=== PATIENT | male | born 1995 | race Caucasian/White ===

== ENCOUNTER 2019-01-18 13:03 | Observation (INO) | payer OTHER ==
[2019-01-18] MEDS ORDERED: Ondansetron PF 4 MG/2 ML Vial ONE ×2 (14:37→18:09)
[2019-01-18] MEDS ORDERED: Morphine 4 MG/ML VIAL ONE ×2 (14:37→18:09)
[2019-01-18 14:46] LABS: #Basophils 0.1 thou/uL (0.0-0.2); #Eosinphils 0.1 thou/uL (0.0-0.7); #Monocytes 0.8 thou/uL (0.11-0.59); #Neutrophils 5.2 thou/uL (1.40-6.50); %Basophils 0.7 % (0.0-1.0); %Eosinophils 1.1 % (0.0-10.0); %Lymphocytes 14.5 % (21.0-51.0); %Monocytes 10.9 % (0.0-10.0); %Neutrophils 72.7 % (42.0-75.0); Hemoglobin 11.7 g/dL (14.0-18.0); Mean Corpuscular HGB CONC 34.1 g/dL (32.0-36.0); Mean Corpuscular Hemoglobin 30.6 pg (27.0-31.0); Mean Corpuscular Volume 89.9 fL (78.0-98.0); Mean Platelet Volume 6.8 fL (7.4-10.4); Platelet Count 387 thou/uL (130-400); RBC Distribution Width 12.3 % (11.5-14.5); Red Blood Cell (RBC) Count 3.81 mill/uL (4.70-6.10); White Blood Cell (WBC) Count 7.1 thou/uL (4.8-10.8)
[2019-01-18 15:05] LABS: ALT (SGPT) 16 U/L (8-55); AST (SGOT) 39 U/L (5-34); Albumin 4.4 g/dL (3.5-5.0); Alkaline Phosphatase 63 U/L (40-150); Anion Gap 14 mmol/L (10-20); BUN (Urea Nitrogen) 18 mg/dL (8.9-20.6); Bilirubin, Total 4.4 mg/dL (0.2-1.2); Calc. Creatinine Clearance 0 mL/min (70-130); Calcium 10.1 mg/dL (7.8-10.44); Carbon Dioxide 28 mmol/L (22-29); Chloride 99 mmol/L (98-107); Estimated GFR-MDRD Greater than 90; Globulin 3.6 g/dL (2.4-3.5); Glucose 104 mg/dL (70-105); Lipase 31 U/L (8-78); Sodium 137 mmol/L (136-145)
--- NOTE | 2019-01-18 19:01 | HP ---
CHIEF COMPLAINT: Abdominal pain, nausea, jaundice. HISTORY OF PRESENT ILLNESS: This is a 23-year-old male who is a week and two, he is 9 days status post laparoscopic appendectomy done at [facility] in [facility] in [facility]. He had presented there from the mother's report nonperforated appendicitis. He was sent home on Augmentin to be taken for 2 weeks. He has noted continued abdominal distention associated with nausea and bloating, has not been able to eat much with no appetite. He has had some diarrhea. His CT scan done in [place] shows fluid in bilateral pericolic gutters as well as the pelvis. There was no free air. There was no abscess. His bilirubin was found to be 4. The family is not interested in going back to [place]. The patient has a history of chronic abdominal pain that is intermittent, lower crampy associated with chronic diarrhea. He has never had full workup by laryngologist. He was sent to have labs done by his primary care doctor before the appendectomy started. He had flu-like symptoms for a few weeks before the appendectomy. PAST MEDICAL HISTORY: He denies. SURGICAL HISTORY: Above. MEDICATIONS: Taken daily none. ALLERGIES: NO KNOWN DRUG ALLERGIES. SOCIAL HISTORY: Drinks socially. No smoking or other drugs. PHYSICAL EXAMINATION: VITAL SIGNS: His pulse is in 90s, blood pressure is 138/75. He is afebrile here, O2 sats are 100% on room air. HEENT: Icteric sclera. His oropharynx is clear. NECK: No lymphadenopathy. CHEST: Clear. HEART: Regular rate and rhythm. ABDOMEN: Soft, diffuse mildly tender, more tender at incision sites. No evidence of wound infection. LABORATORY DATA: White count is 7, hemoglobin is 11.7, platelet count is 387. Sodium 137, potassium 4.0, creatinine is 0.86, bilirubin is 4.4, AST is 39, lipase normal, albumin normal. CT scan shows fluid in bilateral pericolic gutters as well as the pelvis. No abscess. No evidence of inflammatory change to the bowel or colon. ASSESSMENT: 1. Postop laparoscopic appendectomy with likely blood in the abdomen. Suspect this is postsurgical from port site or staple line bleed. 2. Jaundice. I suspect this is from breakdown of blood clot in his abdomen. 3. Chronic bloating associated with diarrhea, uncertain etiology. He has not had inflammatory bowel disease workup yet. PLAN: Admit to the hospital for IV fluids. We will allow clear liquids. He was placed on Zosyn. This fluid in the abdomen explained by his slightly low hemoglobin is probably blood. However, there is no obvious abscess. Infectious count is normal. He is not tachycardic. He is not febrile here, so I do not suspect this is infected fluid. However, if he clinically does not improve overnight, I suspect he will need a laparoscopy, potential abdominal washout. He also needs outpatient complete workup to rule out inflammatory bowel disease. If he has diarrhea here in the hospital, we will check for C. diff. Job ID: [id number]
[2019-01-18] MEDS ORDERED: Promethazine HCl 25 MG/ML VIAL IM PRN (19:42)
[2019-01-18] MEDS ORDERED: Acetaminophen 1,000 MG in Premix Bag 1 BAG IVPB PRN (19:42)
[2019-01-18] MEDS ORDERED: Dextrose 50% Abboject 50 ML SYRINGE SLOW IVP PRN (19:42)
[2019-01-18] MEDS ORDERED: hydrALAZINE 20 MG/ML VIAL SLOW IVP PRN (19:42)
[2019-01-18] MEDS ORDERED: Morphine 2 MG/ML SYRINGE SLOW IVP PRN (19:42)
[2019-01-18] MEDS ORDERED: Dextrose 5% in Water 1,000 ML IV PRN (19:42)
[2019-01-18] MEDS ORDERED: Ondansetron PF 4 MG/2 ML Vial IVP PRN (19:42)
[2019-01-18] MEDS: D5 1/2 NS w/20 mEq KCL 1,000 ML IV SCH (20:13)
[2019-01-18 21:06] VITALS: BMI 21.2
[2019-01-18] MEDS: Famotidine/PF 20 mg/2ml Vial SLOW IVP SCH (21:50)
[2019-01-18] MEDS: Famotidine 20 MG TAB PO SCH (21:50)
[2019-01-18] MEDS: Morphine 4 MG/ML VIAL SLOW IVP PRN (21:58)
[2019-01-19] MEDS: Piperacillin/Tazobactam 3.375 GM in Sodium Chloride 0.9% 100 ML IVPB SCH ×4 (01:26→18:06)
[2019-01-19] MEDS: Morphine 4 MG/ML VIAL SLOW IVP PRN ×6 (02:04→20:16)
[2019-01-19] MEDS: D5 1/2 NS w/20 mEq KCL 1,000 ML IV SCH ×3 (02:56→20:27)
[2019-01-19 05:59] LABS: #Eosinphils 0.1 thou/uL (0.0-0.7); #Lymphocytes 1.3 thou/uL (1.20-3.40); #Monocytes 0.9 thou/uL (0.11-0.59); #Neutrophils 4.3 thou/uL (1.40-6.50); %Basophils 0.6 % (0.0-1.0); %Monocytes 13.6 % (0.0-10.0); %Neutrophils 64.7 % (42.0-75.0); Hemoglobin 10.4 g/dL (14.0-18.0); Mean Corpuscular HGB CONC 32.8 g/dL (32.0-36.0); Mean Corpuscular Hemoglobin 30.5 pg (27.0-31.0); Mean Platelet Volume 6.7 fL (7.4-10.4); Platelet Count 323 thou/uL (130-400); RBC Distribution Width 12.5 % (11.5-14.5); Red Blood Cell (RBC) Count 3.42 mill/uL (4.70-6.10); White Blood Cell (WBC) Count 6.6 thou/uL (4.8-10.8)
[2019-01-19 06:12] LABS: Anion Gap 11 mmol/L (10-20); BUN (Urea Nitrogen) 12 mg/dL (8.9-20.6); Calc. Creatinine Clearance 130 mL/min (70-130); Calcium 9.5 mg/dL (7.8-10.44); Carbon Dioxide 28 mmol/L (22-29); Chloride 102 mmol/L (98-107); Estimated GFR-MDRD Greater than 90; Glucose 93 mg/dL (70-105); Potassium 4.1 mmol/L (3.5-5.1); Sodium 137 mmol/L (136-145)
[2019-01-19 08:44] LABS: ALT (SGPT) 14 U/L (8-55); AST (SGOT) 35 U/L (5-34); Albumin 3.8 g/dL (3.5-5.0); Alkaline Phosphatase 54 U/L (40-150); Bilirubin, Direct 0.3 mg/dL (0.1-0.3); Bilirubin, Total 4.1 mg/dL (0.2-1.2); Protein, Total 6.9 g/dL (6.0-8.3)
--- NOTE | 2019-01-19 09:05 | ULT ---
RIGHT UPPER QUADRANT ULTRASOUND: Date: 01/19/19 HISTORY: Elevated bilirubin, status post laparoscopic appendectomy. TECHNIQUE: Multiple longitudinal and transverse images of the right upper quadrant of the abdomen obtained using a multihertz curvilinear transducer. Real-time and color flow images, as well as spectral waveform D oppler analysis used to evaluate the right upper quadrant. FINDINGS: Liver is unremarkable. No evidence of hepatic parenchymal masses or lesions seen. Normal hepatopetal flow seen. Gallbladder is unremarkable with no evidence of gallbladder wall thickening or gallstones. Common vanesa e duct is of normal size measuring 3.5 mm. A small amount of free pelvic fluid is seen. Visualized portions of the pancreas are unremarkable. Right kidney is unremarkable, measuring 11.1 cm from pole to pole, with no evidence of masses or lesi ons or evidence of hydronephrosis. IMPRESSION: 1. Normal gallbladder with no evidence of intrahepatic biliary dilatation. 2. Small amount of free pelvic fluid. POS: H
[2019-01-19] MEDS: Famotidine/PF 20 mg/2ml Vial SLOW IVP SCH ×2 (09:10→21:36)
[2019-01-19] MEDS: Famotidine 20 MG TAB PO SCH ×2 (09:11→21:36)
--- NOTE | 2019-01-19 12:25 | PRG ---
DATE OF SERVICE: 01/19/2019 SUBJECTIVE: Mr. Salazar feels better today. He has no more nausea. He still has some lower abdominal pain. He had ultrasound and repeat LFTs this morning. His pulse is 82, respirations 16, O2 saturation 98% on room air, blood pressure 106/69. He has had multiple voids. His abdomen is soft, still mildly distended with some lower abdominal tenderness, but no guarding or rebound. His white cell count is 6, hemoglobin 10, platelet count is 323. Sodium 137, potassium 4.1, creatinine 0.89. Bilirubin total is 4.1, only 0.3 of that is direct. AST elevated at 35. Ultrasound shows no gallstones. ASSESSMENT: 1. Readmission for postop abdominal blood one week after laparoscopic appendectomy. 2. Cholestasis secondary to blood breakdown I suspect. 3. Ultrasound shows no gallstones or biliary duct dilation and most of the bilirubin is indirect. PLAN: We will advance to full liquid diet. Continue observation. I suspect he will be feeling better within the next few days. We discussed laparoscopy, abdominal washout. I do not think he has to have that given the fact that this is almost certainly blood. I do not suspect it is infected given his lack of tachycardia, fever, or increased infectious count, or left shift. Bilirubin is not going to be normal upon discharge. If he is feeling better over the weekend, he will be discharged home. He also has a history of some chronic symptoms in his right lower quadrant with cramping and diarrhea. I will arrange for outpatient GI referral when he comes back and sees me in the office. Dr. Whitlock covering for me this weekend. Job ID: [id number]
[2019-01-19 16:13] LABS: Bilirubin Negative (Negative); Blood, Urine Moderate (Negative); Clarity CLEAR (Clear); Glucose, Urine (Dipstick) Negative (Negative); Leukocyte Negative (Negative); Nitrite Negative (Negative); Protein, Urine (Dipstick) Negative (Neg-Trace); Specific Gravity, Urine 1.004 (1.002-1.036); Urobilinogen 0.2 mg/dL (0.2-1.0); pH, Urine 7.5 (5.0-9.0)
[2019-01-19 16:14] LABS: Bacteria/HPF None Seen HPF (None Seen); Hyaline Casts/LPF 0-3 HYALINE CAST LPF (0-3 Hyaline); Squamous Epithelial None Seen HPF (0-3); WBC/HPF 0-3 HPF (0-3)
[2019-01-19 16:32] LABS: RBC/HPF 0-3 HPF (0-3)
[2019-01-19] MEDS: Acetaminophen 500 MG TAB PO PRN (23:04)
[2019-01-20] MEDS: D5 1/2 NS w/20 mEq KCL 1,000 ML IV SCH ×2 (00:14→13:12)
[2019-01-20] MEDS: Morphine 4 MG/ML VIAL SLOW IVP PRN ×5 (02:39→16:27)
[2019-01-20 07:34] LABS: #Eosinphils 0.1 thou/uL (0.0-0.7); #Lymphocytes 1.3 thou/uL (1.20-3.40); #Monocytes 0.8 thou/uL (0.11-0.59); #Neutrophils 3.6 thou/uL (1.40-6.50); %Basophils 0.6 % (0.0-1.0); %Eosinophils 2.3 % (0.0-10.0); %Lymphocytes 22.4 % (21.0-51.0); %Neutrophils 60.7 % (42.0-75.0); Hemoglobin 11.7 g/dL (14.0-18.0); Mean Corpuscular HGB CONC 31.9 g/dL (32.0-36.0); Mean Corpuscular Hemoglobin 29.8 pg (27.0-31.0); Mean Corpuscular Volume 93.4 fL (78.0-98.0); Mean Platelet Volume 6.6 fL (7.4-10.4); Platelet Count 312 thou/uL (130-400); RBC Distribution Width 12.2 % (11.5-14.5); Red Blood Cell (RBC) Count 3.93 mill/uL (4.70-6.10)
[2019-01-20 07:49] LABS: ALT (SGPT) 11 U/L (8-55); AST (SGOT) 31 U/L (5-34); Albumin 3.9 g/dL (3.5-5.0); Alkaline Phosphatase 53 U/L (40-150); Anion Gap 13 mmol/L (10-20); BUN (Urea Nitrogen) 8 mg/dL (8.9-20.6); Bilirubin, Total 3.8 mg/dL (0.2-1.2); Calc. Creatinine Clearance 150 mL/min (70-130); Calcium 9.5 mg/dL (7.8-10.44); Carbon Dioxide 29 mmol/L (22-29); Chloride 102 mmol/L (98-107); Estimated GFR-MDRD Greater than 90; Globulin 3.3 g/dL (2.4-3.5); Glucose 97 mg/dL (70-105); Potassium 3.8 mmol/L (3.5-5.1); Protein, Total 7.2 g/dL (6.0-8.3); Sodium 140 mmol/L (136-145)
[2019-01-20] MEDS: Famotidine/PF 20 mg/2ml Vial SLOW IVP SCH (09:21)
[2019-01-20] MEDS: Famotidine 20 MG TAB PO SCH ×2 (09:22→22:52)
[2019-01-20] MEDS: Acetaminophen 500 MG TAB PO PRN ×2 (13:01→22:24)
[2019-01-20] MEDS: Ketorolac Tromethamine 30 MG/ML VIAL IVP PRN ×2 (15:18→22:23)
[2019-01-20] MEDS ORDERED: traMADol HCl 50 MG TAB PO PRN (16:56)
[2019-01-20] MEDS ORDERED: Ibuprofen 600 MG TAB PO PRN (16:56)
--- NOTE | 2019-01-20 17:18 | PRG ---
DATE OF SERVICE: 01/20/2019 SUBJECTIVE: Bhupendra Salazar, 23-year-old male patient seen by Dr. Jerome. The patient's temperature is 98.9 degrees, pulse rate 69, blood pressure 122/72. He has been afebrile. Family reports a low-grade fever in the past, but he has not had a low-grade fever since this hospitalization. Hemoglobin this morning is 11.7, white count 6. Basic metabolic profile is normal. The patient denies having nausea or vomiting. He has passed flatus, but no bowel movement. OBJECTIVE: LUNGS: Clear to auscultation. CARDIAC: Regular rate and rhythm. No murmur or gallop. ABDOMEN: Soft, flat, nontender, nondistended. Positive bowel sounds. EXTREMITIES: Unremarkable. ASSESSMENT/PLAN: Advance diet. Saline lock. Observe hemoglobin. Anticipate discharge in next 24 to 48 hours. The patient's bilirubin has been elevated 3.8 today. Ultrasound of his gallbladder is normal. His bilirubin elevation is probably due to cholestasis. Job ID: [id number]
[2019-01-20] MEDS: traMADol HCl 50 MG TAB PO PRN (19:06)
[2019-01-20] MEDS: Polyethylene Glycol 3350 17 GM Packet PO SCH (21:15)
[2019-01-21] MEDS: traMADol HCl 50 MG TAB PO PRN ×2 (00:36→07:05)
[2019-01-21] MEDS: Acetaminophen 500 MG TAB PO PRN (00:40)
[2019-01-21 05:02] LABS: #Eosinphils 0.2 thou/uL (0.0-0.7); #Lymphocytes 1.5 thou/uL (1.20-3.40); #Monocytes 0.7 thou/uL (0.11-0.59); #Neutrophils 3.9 thou/uL (1.40-6.50); %Basophils 0.8 % (0.0-1.0); %Eosinophils 2.7 % (0.0-10.0); %Lymphocytes 23.8 % (21.0-51.0); %Monocytes 10.9 % (0.0-10.0); %Neutrophils 61.8 % (42.0-75.0); Hemoglobin 11.4 g/dL (14.0-18.0); Mean Corpuscular HGB CONC 32.1 g/dL (32.0-36.0); Mean Corpuscular Hemoglobin 30.9 pg (27.0-31.0); Mean Corpuscular Volume 96.3 fL (78.0-98.0); Mean Platelet Volume 7.3 fL (7.4-10.4); Platelet Count 290 thou/uL (130-400); RBC Distribution Width 12.2 % (11.5-14.5); Red Blood Cell (RBC) Count 3.68 mill/uL (4.70-6.10); White Blood Cell (WBC) Count 6.2 thou/uL (4.8-10.8)
[2019-01-21 05:15] LABS: ALT (SGPT) 11 U/L (8-55); AST (SGOT) 31 U/L (5-34); Albumin 4.1 g/dL (3.5-5.0); Alkaline Phosphatase 57 U/L (40-150); Bilirubin, Direct 0.4 mg/dL (0.1-0.3); Bilirubin, Total 3.3 mg/dL (0.2-1.2); Protein, Total 7.4 g/dL (6.0-8.3)
[2019-01-21] MEDS: Polyethylene Glycol 3350 17 GM Packet PO SCH (08:56)
[2019-01-21] MEDS: Famotidine 20 MG TAB PO SCH (08:58)
--- NOTE | 2019-01-21 11:55 | PRG ---
DATE OF SERVICE: 01/21/2019 SUBJECTIVE: Mr. Salazar is doing well today. He is tolerating a regular diet. He has had a normal bowel movement. He is not having diarrhea. C. diff antigen positive. Toxin negative. We will not treat this. OBJECTIVE: VITAL SIGNS: Temperature 98.1 degrees, heart rate 78, and blood pressure 120/77. LUNGS: Clear to auscultation. CARDIAC: Regular rate and rhythm. No murmur or gallop. ABDOMEN: Soft, nontender, and nondistended. LABORATORY DATA: Hemoglobin, stable at 11.4. Bilirubin down from 4.4 to 3.3. ASSESSMENT AND PLAN: Doing well. Postoperative bleed after laparoscopic appendectomy. Hemoglobin, stable. He is tolerating his diet. He is discharged home at this time with Tylenol, ibuprofen, and Ultram p.r.n. for pain. MiraLAX as needed, hold for diarrhea. Follow up with Dr. Jerome in 2 to 3 weeks. Job ID: [id number]
[2019-01-21 11:57] VITALS: BP 129/77; TEMP 98.7
--- NOTE | 2019-01-21 12:37 | DIS ---
DATE OF ADMISSION: 01/18/2019 DATE OF DISCHARGE: 01/21/2019 DISCHARGE DIAGNOSIS: Postoperative bleed from laparoscopic appendectomy performed at another facility. Ultrasound this hospitalization reveals normal gallbladder, some small amount of free pelvic fluid. FINDINGS THIS HOSPITALIZATION: Significant was that his hemoglobin was 11.7. Discharged with hemoglobin of 11.4. His bilirubin on admission was 4.4, discharged with 3.3 bilirubin. The patient had a small ileus. HISTORY: A 23-year-old male status post laparoscopic video appendectomy with uncomplicated appendicitis at another facility, presented to this facility because of abdominal pain and nausea. Admitted 01/18/[address] Jerome from the emergency room. The patient's appendectomy was performed at [facility]. He was on Augmentin for 2 weeks. He did present with abdominal distention, nausea, and bloating. CAT scan done in [place] showed fluid in bilateral pericolic gutters. The patient has a history of chronic abdominal pain, intermittent lower abdominal cramping and chronic diarrhea. He has never had a full workup by Gastroenterology. The patient was admitted. It was felt his free fluid was from his bleeding post laparoscopic appendectomy. His hemoglobin remained stable. He did not require transfusion. Stool was sent for C. diff, although he was not having diarrhea with C. diff antigen positive, toxin negative. He was not treated with antibiotics in this hospitalization. He was discharged home with Tylenol, Advil, and Ultram p.r.n. pain. Follow up with Dr. Jerome in 2 weeks. Diet and activity as tolerated. Job ID: [id number]
== END 2019-01-21 12:50 | disposition home or self-care (01) ==
LOC: ERS 13:03 → SURG B 17:13
PROVIDERS: ADMIT Surgery; ATTEND Surgery
DX: K91.840 Postprocedural hemorrhage of a digestive system organ or structure following a digestive system procedure (principal); K52.9 Noninfective gastroenteritis and colitis, unspecified; R17 Unspecified jaundice; Z88.1 Allergy status to other antibiotic agents
CPT/HCPCS: 36415; 76705; 80048; 80053; 80076; 81001; 83605; 83690; 85025; 87086; 87324; 87449; 87493; 96361; 96365; 96374; 96375; 96376; G0378; J1885; J2270; J2405; J2543; J7050; S0028

== ENCOUNTER 2019-01-24 15:41 | Observation (INO) | payer OTHER ==
[~2019-01-24 15:41] MED LIST: ISOVUE-370 76%-LOCM 1 ML ONE; Iopamidol 370 76% 50 ML VIAL FS ONE
[2019-01-24] MEDS ORDERED: Ketorolac Tromethamine 30 MG/ML VIAL ONE (18:04)
[2019-01-24 18:06] LABS: #Eosinphils 0.1 thou/uL (0.0-0.7); #Lymphocytes 1.2 thou/uL (1.20-3.40); #Monocytes 0.7 thou/uL (0.11-0.59); #Neutrophils 7.9 thou/uL (1.40-6.50); %Basophils 0.5 % (0.0-1.0); %Eosinophils 0.6 % (0.0-10.0); %Lymphocytes 12.3 % (21.0-51.0); %Monocytes 6.7 % (0.0-10.0); %Neutrophils 79.9 % (42.0-75.0); Hemoglobin 12.9 g/dL (14.0-18.0); Mean Corpuscular HGB CONC 32.5 g/dL (32.0-36.0); Mean Corpuscular Hemoglobin 29.3 pg (27.0-31.0); Mean Corpuscular Volume 90.4 fL (78.0-98.0); Mean Platelet Volume 6.6 fL (7.4-10.4); Platelet Count 381 thou/uL (130-400); RBC Distribution Width 11.8 % (11.5-14.5); Red Blood Cell (RBC) Count 4.39 mill/uL (4.70-6.10); White Blood Cell (WBC) Count 9.9 thou/uL (4.8-10.8)
[2019-01-24 18:13] LABS: Bilirubin Negative (Negative); Blood, Urine Negative (Negative); Clarity CLEAR (Clear); Glucose, Urine (Dipstick) Negative (Negative); Leukocyte Negative (Negative); Nitrite Negative (Negative); Protein, Urine (Dipstick) Negative (Neg-Trace); Specific Gravity, Urine 1.006 (1.002-1.036); Urobilinogen 0.2 mg/dL (0.2-1.0); pH, Urine 6.5 (5.0-9.0)
[2019-01-24 18:25] LABS: ALT (SGPT) 117 U/L (8-55); AST (SGOT) 85 U/L (5-34); Albumin 4.1 g/dL (3.5-5.0); Alkaline Phosphatase 60 U/L (40-150); Anion Gap 16 mmol/L (10-20); BUN (Urea Nitrogen) 15 mg/dL (8.9-20.6); Bilirubin, Total 1.4 mg/dL (0.2-1.2); Calc. Creatinine Clearance 0 mL/min (70-130); Calcium 9.3 mg/dL (7.8-10.44); Carbon Dioxide 25 mmol/L (22-29); Chloride 99 mmol/L (98-107); Estimated GFR-MDRD Greater than 90; Globulin 3.7 g/dL (2.4-3.5); Glucose 102 mg/dL (70-105); Lipase 15 U/L (8-78); Potassium 3.9 mmol/L (3.5-5.1); Protein, Total 7.8 g/dL (6.0-8.3); Sodium 136 mmol/L (136-145)
[2019-01-24] MEDS ORDERED: Morphine 4 MG/ML VIAL ONE ×2 (19:21→21:39)
[2019-01-24] MEDS ORDERED: Ondansetron PF 4 MG/2 ML Vial ONE ×2 (19:21→19:25)
--- NOTE | 2019-01-24 19:51 | CT ---
FEXAM: CT abdomen and pelvis with IV contrast PROVIDED CLINICAL HISTORY: Abdominal pain COMPARISON: [facility] examination from [facility] 01/18/2019 FINDINGS: The visualized lung bases are free of significant opacity. The liver, spleen, pancreas, kidneys and adrenal glands demonstrate an unremarkable CT appearance. There is prominent interval decrease in the degree of previously described pelvic fluid. There is reji ewhat circumscribed pelvic fluid present measuring about 8.8 cm in maximum transverse dimension with minimal peripheral enhancement. There is no evidence for bowel obstruction. There is mural thickening involving the terminal ileum and possibly a portion of the sigmoid colon. There is no evidence for f ree air. There is a small amount of free fluid present within the right paracolic gutter. The osseous structures demonstrate no concerning lytic or blastic lesions. IMPRESSION: 1. Interval decrease in abdominal and pelvic fluid with nonspecific somewhat circumscribed pelvic flu id collection. Correlate with laboratory values regarding infection. This could also be on the basis of resolving blood products. 2. Mural thickening involving the distal ileum and possibly also portion of the sigmoid colon. This c ould be reactive versus related to inflammatory bowel disease.
[2019-01-24] MEDS ORDERED: Acetaminophen 325 MG TAB ONE (21:15)
[2019-01-24] MEDS ORDERED: Ondansetron PF 4 MG/2 ML Vial IVP PRN (21:53)
[2019-01-24] MEDS ORDERED: Sodium Chloride 0.9% 1,000 ML IV SCH (22:00)
[2019-01-24] MEDS ORDERED: Dextrose 50% Abboject 50 ML SYRINGE SLOW IVP PRN (22:01)
[2019-01-24] MEDS ORDERED: hydrALAZINE 20 MG/ML VIAL SLOW IVP PRN (22:01)
[2019-01-24] MEDS ORDERED: Promethazine HCl 25 MG/ML VIAL IM PRN (22:01)
[2019-01-24] MEDS ORDERED: Fentanyl 100 MCG/2 ML VIAL SLOW IVP PRN (22:01)
[2019-01-24] MEDS ORDERED: Acetaminophen 1,000 MG in Premix Bag 1 BAG IVPB PRN (22:01)
[2019-01-24] MEDS ORDERED: Dextrose 5% in Water 1,000 ML IV PRN (22:01)
[2019-01-24 22:08] VITALS: BMI 20.6
--- NOTE | 2019-01-24 22:17 | HP ---
CHIEF COMPLAINT: Lower abdominal pain and dehydration. HISTORY OF PRESENT ILLNESS: This is a 23-year-old male who is 2-1/2 weeks status post laparoscopic appendectomy performed in the hospital in [place], presented here after being transferred from [place] one week after that surgery with moderate amount of fluid in the pelvis associated with slightly lower hemoglobin and an elevated bilirubin. He was admitted with presumed hemoperitoneum as a postop complication. He was assumed to have cholestasis causing his jaundice at that time. At that time, he was afebrile. His vital signs were stable. His abdomen was fairly benign. His infectious count was normal. His symptoms improved and he was discharged home. He now presents with reoccurring lower abdominal cramping pain. He denies diarrhea, but his mother and girlfriend both state that he has had not just current loose stools, but chronic loose stools as well. As an outpatient prior to this appendix event, he was going to undergo Crohn's workup at some point as per his primary care physician in [place]. PAST MEDICAL HISTORY: Otherwise, negative. PAST SURGICAL HISTORY: Otherwise, negative. MEDICATIONS: None. ALLERGIES: NO KNOWN DRUG ALLERGIES. SOCIAL HISTORY: No smoking, alcohol, or other drugs. REVIEW OF SYSTEMS: Otherwise, negative. PHYSICAL EXAMINATION: VITAL SIGNS: Pulse 90, blood pressure is 138/78. He is afebrile. His O2 saturation is 100% on room air. HEENT: Sclerae are nonicteric now. His oropharynx is clear. NECK: No lymphadenopathy. CHEST: Clear. HEART: Regular rate and rhythm. ABDOMEN: Soft, diffuse mildly tender. He does have some right lower quadrant guarding without rebound tenderness. Incisions are all healing well without evidence of infection or hernia. LABORATORY DATA: White blood cell count is 9, hemoglobin is 12.9, platelet count is 381, normal differential. Sodium 136, potassium 3.9, and creatinine is 0.89. His bilirubin is now down to 1.4, alkaline phosphatase normal at 60, lipase normal. UA clear. Prior UA had moderate amount of blood in it, but otherwise clear. His urine culture did not grow out anything. His Clostridium difficile toxin from 01/21/2019, the antigen was positive, PCR negative. DIAGNOSTIC DATA: CT scan done this evening shows decrease in the abdominopelvic fluid, mural thickening of the distal ileum. ASSESSMENT: 1. Postoperative laparoscopic appendectomy, postoperative hemoperitoneum, resolving; hemoglobin improved, and his bilirubin and cholestasis are improved. 2. History of chronic lower abdominal cramping and pain associated with diarrhea, but no previous workup for inflammatory bowel disease, now with more localized terminal ileum inflammatory change without obvious perforation on CT scan. Again, his infectious count is normal, and he is fairly stable. PLAN: We will admit to the hospital for IV fluid resuscitation. We will hold off on antibiotics for now and allow for clear liquids. I have discussed with Dr. Simeon Jarvis, who will see him for further recommendations. We will hold off on treatment of this. Clostridium difficile antigen positive, toxin negative, until Dr. Jarvis sees him. Job ID: [id number]
[2019-01-24] MEDS: Famotidine/PF 20 mg/2ml Vial SLOW IVP SCH (22:51)
[2019-01-24] MEDS: Famotidine 20 MG TAB PO SCH (22:51)
[2019-01-24] MEDS: methylPREDNISolone Sod Succ 40 MG VIAL IVP SCH (23:05)
[2019-01-24] MEDS: D5 1/2 NS w/20 mEq KCL 1,000 ML IV SCH (23:05)
[2019-01-25] MEDS: Fentanyl 100 MCG/2 ML VIAL SLOW IVP PRN ×5 (01:54→23:44)
--- NOTE | 2019-01-25 02:41 | CON ---
DATE OF CONSULTATION: 01/24/2019 REASON FOR CONSULTATION: Abdominal pain. HISTORY OF PRESENT ILLNESS: Mr. Salazar is a 23-year-old male who presented to the ER today with persistent abdominal pain that has not improved since his last admission a week ago. He initially developed sudden onset of severe abdominal pain on January 09 while working in [place]. He presented to [facility] in [facility]. He had CT findings consistent with acute appendicitis. The patient underwent an appendectomy, stayed in the hospital for two days and was discharged. A week later, he patient developed worsening lower abdominal pain which prompted visit to [place] [facility] where CT scan performed showed fluid in the lower abdomen and pelvis associated with elevation of his bilirubin. The patient was supposed to be transferred to [place] and was admitted by Dr. Jerome. His bilirubin did improve during the hospitalization and he was subsequently discharged to home. The pain has still been persistent in the lower abdomen and pelvic area with occasional worsening associated with bowel movement or urination. He denies any fevers or chills. He does have some nausea, but without any vomiting. He has had intermittent diarrhea without blood or mucus. In the 6 months preceding his severe abdominal pain and appendectomy, he has had recurrent abdominal cramps associated with frequent postprandial diarrhea. He did lose 20 pounds during 6 months and additional 10 pounds since the appendectomy. He denies any antecedent travel history or antibiotic usage. CT performed today showed decrease in fluid volume in the pelvis. However, there are inflammatory changes involving the ileum. PAST MEDICAL HISTORY: 1. Status post appendectomy as above. 2. Otherwise healthy. ALLERGIES: NONE. MEDICATIONS: At home, none. 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 He does not have any tobacco history and infrequently consumes alcohol. FAMILY HISTORY: Biological father with possible Crohn's. He has not been in contact for many years. REVIEW OF SYSTEMS: A 10-point review of systems did not show any other pertinent positives or negatives. PHYSICAL EXAMINATION: VITAL SIGNS: Temperature is 98.2, blood pressure 140/70, pulse of 90. GENERAL: He is alert, very uncomfortable, but in no distress. HEENT: Show anicteric sclerae. Oropharynx is clear. NECK: Supple. CV: Shows normal S1, S2. Regular rate and rhythm. CHEST: Shows breath sounds. ABDOMEN: Nondistended. No tympany. He does have bowel sounds. There is focal tenderness in the suprapubic and lower abdominal areas, but no rebound or guarding. EXTREMITIES: Show no edema. LABORATORY DATA: WBC is 9.9, hemoglobin 12.9, and platelet count 381. Electrolytes within normal range. Creatinine 0.89, bilirubin is down to 1.4 (4.1 on 01/19). AST of 117, alkaline phosphatase of 60, and ALT of 85. Lipase is 15. Abdomen and pelvic CT with IV contrast showed decrease in abdominal-pelvic fluid with new mural thickening of the distal ileum and possibly the sigmoid colon. ASSESSMENT: 1. The patient with persistent pain following his appendectomy on 01/09 associated with intraabdominal bleed that appears to be resolving. New CT finding of mural thickening involving the ileum suggesting ileitis raises possibility of Crohn disease. There is no evidence of obstruction on CT or on exam. 2. Dehydration. RECOMMENDATION: 1. We will start on methylprednisolone 40 mg IV q.8. 2. Continue with rehydration. 3. Eventual ileal colonoscopy once the patient is rehydrated and can tolerate bowel prep. 4. We will repeat stool studies to include C diff culture and culture. 5. We will follow up. Job ID: [id number] [facility]
[2019-01-25] MEDS: D5 1/2 NS w/20 mEq KCL 1,000 ML IV SCH ×3 (05:36→23:39)
[2019-01-25] MEDS: methylPREDNISolone Sod Succ 40 MG VIAL IVP SCH ×4 (05:36→23:40)
[2019-01-25 06:11] LABS: #Lymphocytes 0.9 thou/uL (1.20-3.40); #Monocytes 0.2 thou/uL (0.11-0.59); %Basophils 0.3 % (0.0-1.0); %Eosinophils 0.7 % (0.0-10.0); %Lymphocytes 14.8 % (21.0-51.0); %Monocytes 2.9 % (0.0-10.0); %Neutrophils 81.3 % (42.0-75.0); Hemoglobin 13.2 g/dL (14.0-18.0); Mean Corpuscular HGB CONC 32.4 g/dL (32.0-36.0); Mean Corpuscular Volume 89.5 fL (78.0-98.0); Mean Platelet Volume 6.8 fL (7.4-10.4); Platelet Count 265 thou/uL (130-400); RBC Distribution Width 11.6 % (11.5-14.5); Red Blood Cell (RBC) Count 4.53 mill/uL (4.70-6.10); White Blood Cell (WBC) Count 6.1 thou/uL (4.8-10.8)
[2019-01-25 06:41] LABS: Anion Gap 15 mmol/L (10-20); BUN (Urea Nitrogen) 13 mg/dL (8.9-20.6); Calc. Creatinine Clearance 126 mL/min (70-130); Calcium 10.1 mg/dL (7.8-10.44); Carbon Dioxide 25 mmol/L (22-29); Chloride 103 mmol/L (98-107); Estimated GFR-MDRD Greater than 90; Glucose 145 mg/dL (70-105); Potassium 5.3 mmol/L (3.5-5.1); Sodium 138 mmol/L (136-145)
[2019-01-25] MEDS ORDERED: Famotidine/PF 20 mg/2ml Vial SLOW IVP SCH (09:00)
[2019-01-25] MEDS: Famotidine/PF 20 mg/2ml Vial SLOW IVP SCH ×2 (09:27→20:01)
[2019-01-25] MEDS: Famotidine 20 MG TAB PO SCH (09:28)
--- NOTE | 2019-01-25 09:51 | PRG ---
DATE OF SERVICE: 01/25/2019 SUBJECTIVE: The patient says his stomach has a lot of pain, but is better with the medications. He was seen by Dr. Jarvis in GI and they have started him on methylprednisolone and are talking about a possible colonoscopy if he can tolerate the prep. OBJECTIVE: VITAL SIGNS: His temperature is 97.4, pulse 69, and blood pressure 109/69. GENERAL: He is somewhat sedated and pale. LUNGS: Clear. HEART: Regular rate and rhythm. ABDOMEN: Soft. He does have some mild tenderness in the lower abdomen, more so on the right. LABORATORY DATA: His white count 6.1, hemoglobin and hematocrit of 13 and 40, platelet count of 265. His potassium elevated at 5.3 and glucose at 145. ASSESSMENT: Probable Crohn disease. PLAN: Per GI. Job ID: [id number]
--- NOTE | 2019-01-25 17:33 | PRG ---
DATE OF SERVICE: 01/25/2019 SUBJECTIVE: The patient feels much better today. The pain has greatly subsided. He has had five loose bowel movements today without blood or mucus. He is tolerating clear liquids without any nausea or vomiting. PHYSICAL EXAMINATION: VITAL SIGNS: Temperature is 97.6, blood pressure 111/64, pulse of 82. GENERAL: He is alert, conversant, in no distress. HEENT: Shows anicteric sclerae. Oropharynx is moist. CV: Shows normal S1 and S2. Regular rate and rhythm. CHEST: Shows breath sounds. ABDOMEN: Flat. No distention. No tympany. He has active bowel sounds. Soft. Mild suprapubic tenderness. EXTREMITIES: Shows no edema. LABORATORY DATA: WBC 6.1, hemoglobin 13.2, platelet count of 265. Sodium 138, potassium 5.3, chloride 103, CO2 of 25, creatinine 0.89, BUN of 13. ASSESSMENT: 1. Abdominal pain in context of CT showing inflammation of the distal ileum, concerning for Crohn disease. His pain is much improved with IV corticosteroid. The patient has had abdominal pain and postprandial diarrhea associated with 20-pound weight loss for the last 6 months. 2. Status post appendectomy with subsequent hemoperitoneum, which has much resolved with subsequent CT. PLAN: 1. Bowel prep tonight to proceed with ileocolonoscopy tomorrow. 2. Continue with IV methylprednisolone 40 mg IV q.8. 3. Lovenox subcu for DVT prophylaxis. Job ID: [id number]
[2019-01-25] MEDS ORDERED: GoLYTELY 4,000 ml Bottle PO SCH (20:00)
[2019-01-25] MEDS ORDERED: Enoxaparin Sodium 30 MG/0.3 ML SYRINGE SC SCH (21:00)
[2019-01-25] MEDS: Ondansetron PF 4 MG/2 ML Vial IVP PRN (21:37)
[2019-01-26] MEDS: Fentanyl 100 MCG/2 ML VIAL SLOW IVP PRN ×2 (04:10→07:27)
[2019-01-26] MEDS: methylPREDNISolone Sod Succ 40 MG VIAL IVP SCH ×2 (05:25→13:11)
[2019-01-26] MEDS: D5 1/2 NS w/20 mEq KCL 1,000 ML IV SCH ×2 (06:24→07:28)
[2019-01-26] MEDS: Famotidine/PF 20 mg/2ml Vial SLOW IVP SCH (07:26)
[2019-01-26 09:07] LABS: #Monocytes 0.5 thou/uL (0.11-0.59); #Neutrophils 10.8 thou/uL (1.40-6.50); %Basophils 0.1 % (0.0-1.0); %Eosinophils 0.1 % (0.0-10.0); %Monocytes 3.8 % (0.0-10.0); Hemoglobin 11.3 g/dL (14.0-18.0); Mean Corpuscular HGB CONC 30.9 g/dL (32.0-36.0); Mean Corpuscular Volume 93.9 fL (78.0-98.0); Platelet Count 325 thou/uL (130-400); RBC Distribution Width 11.8 % (11.5-14.5); White Blood Cell (WBC) Count 12.3 thou/uL (4.8-10.8)
[2019-01-26 09:24] LABS: Anion Gap 14 mmol/L (10-20); BUN (Urea Nitrogen) 11 mg/dL (8.9-20.6); Calc. Creatinine Clearance 142 mL/min (70-130); Calcium 9.5 mg/dL (7.8-10.44); Carbon Dioxide 22 mmol/L (22-29); Chloride 106 mmol/L (98-107); Estimated GFR-MDRD Greater than 90; Glucose 140 mg/dL (70-105); Sodium 138 mmol/L (136-145)
[2019-01-26] MEDS ORDERED: Lidocaine 1% PF 5 ML VIAL ONE (11:21)
[2019-01-26] MEDS ORDERED: PROPOFOL 200 MG/20 ML VIAL ONE (11:21)
[2019-01-26] MEDS: Ondansetron PF 4 MG/2 ML Vial IVP PRN (13:12)
[2019-01-26 15:37] VITALS: BP 105/59; TEMP 98.3
--- NOTE | 2019-01-26 17:49 | OP ---
DATE OF PROCEDURE: 01/26/2019 INTELLIGENCE CHIEF SURGEON: None. PROCEDURE PERFORMED: Colonoscopy with biopsies. INDICATIONS: 1. Abdominal pain. 2. Abnormal weight loss. 3. Abnormal CT scan, suggesting thickening in the distal ileum and possibly sigmoid colon, raising the possibility of Crohn disease. MEDICATIONS: See Anesthesia record. FINDINGS: After discussion of the risks, benefits, and alternatives of the procedure, informed consent was obtained and witnessed. Pre-endoscopic cardiopulmonary examination was satisfactory. Time-out was performed before sedation was achieved. Sedation was achieved with Anesthesia assistance in the endoscopy unit. Digital rectal exam was performed, which was unremarkable. A Pentax adult colonoscope was inserted into the anus and passed forward to the cecum in the usual fashion. The cecal base was identified by the appendiceal orifice as well as the ileocecal valve. The terminal ileum was intubated and I was able to examine the terminal ileum to about 10 cm. The ileal mucosa appeared normal to the extent examined. There was no evidence of any erosions or ulcerations. It was certainly possible that there may be mucosal disease more proximal than what can be reached with the colonoscope. I did obtain biopsies of the normal-appearing terminal ileal mucosa for histology. The colonoscope was then slowly withdrawn in a gradual and circumferential manner with careful examination of the entire colonic mucosa. The quality of the prep was good. The colonic mucosa appeared normal throughout. Retroflexion in the rectum was normal. The colonoscope was completely withdrawn, and the patient allowed to recover. The patient tolerated the procedure well. There were no immediate postprocedure complications. IMPRESSION: 1. Normal terminal ileum, examined at 10 cm. Biopsied. 2. Otherwise normal colonoscopy. RECOMMENDATIONS: 1. Advance diet. 2. I would keep the patient on steroids, transition to prednisone 40 mg daily on hospital discharge. The patient can follow up in the GI Clinic with Dr. Jarvis. He may consider small bowel capsule endoscopy on an outpatient basis. Job ID: [id number]
--- NOTE | 2019-01-27 02:29 | DIS ---
DATE OF ADMISSION: 01/24/2019 DATE OF DISCHARGE: 01/26/2019 DISCHARGE DIAGNOSIS: Enteritis of the lower ileum, presumably Crohn's disease. PROCEDURES DURING ADMISSION: CT scan of abdomen and pelvis, total colonoscopy. HOSPITAL COURSE: The patient was admitted. CT scan showed segmental enteritis of the ileum. He was empirically started on steroids which made him much better. He underwent a colonoscopy that showed a normal colon and a normal 10 inches of the terminal ileum. However, because of the way the CAT scan looked in his presentation, GI asked me to keep him on steroids, prednisone 40 daily, to discharge him home on that, some Zofran and hydrocodone. He will follow up with Dr. Jarvis in the next week or 2 for possible capsule endoscopy. Job ID: [id number]
== END 2019-01-26 17:25 | disposition home or self-care (01) ==
LOC: ERS 15:41 → SURG A 21:59
PROVIDERS: ADMIT Surgery; ATTEND Internal Medicine
PROC: 0DBH8ZX Excision of Cecum, Via Natural or Artificial Opening Endoscopic, Diagnostic (ICD-10-PCS; principal; 2019-01-26)
DX: K52.9 Noninfective gastroenteritis and colitis, unspecified (principal); Z90.49 Acquired absence of other specified parts of digestive tract; Z88.1 Allergy status to other antibiotic agents; Z79.52 Long term (current) use of systemic steroids
CPT/HCPCS: 36415; 74177; 80048; 80053; 81003; 83690; 85025; 87045; 87046; 87324; 87449; 87493; 87899; 88305; 96361; 96372; 96374; 96375; 96376; G0378; J0131; J1650; J1885; J2001; J2270; J2405; J2704; J2920; J3010; Q9966; Q9967; S0028

== ENCOUNTER 2019-02-19 07:44 | Outpatient (CLI) | payer OTHER ==
[2019-02-19] MEDS ORDERED: Iopamidol 370 76% 100 ML VIAL ONE (13:38)
--- NOTE | 2019-02-19 14:33 | CT ---
CT ABDOMEN AND PELVIS WITH AND WITHOUT IV CONTRAST: (CT ENTEROGRAPHY) DATE: 02/19/19 HISTORY: Suprapubic pain, altered bowel function, nontraumatic hemoperitoneum, painful bladder spasms. COMPARISON: CT abdomen and pelvis of 01/24/19. FINDINGS: The lung bases are clear. The liver, spleen, pancreas, adrenal glands, and kidneys are normal. No cindy cified gallstones are seen. No free air, free fluid, or lymphadenopathy seen in the abdomen or pelvis . The small bowel loops are not abnormally dilated. There is a segment of small bowel loop in the lower mid abdomen demonstrating wall thickening. The fluid on the previous exam have resolved in the inter im. Osseous structures are unremarkable. IMPRESSION: Segmental thickening of wall of a loop of small bowel, likely due to inflammatory bowel disease. POS: [facility]
== END 2019-02-19 07:45 | disposition home or self-care (01) ==
LOC: CT 07:44
PROVIDERS: ATTEND Internal Medicine Gastroenterology
DX: K66.1 Hemoperitoneum (principal); R10.33 Periumbilical pain; N32.89 Other specified disorders of bladder; R19.4 Change in bowel habit
CPT/HCPCS: 74178; Q9967

== ENCOUNTER 2021-08-09 21:15 | Inpatient (IN) | payer OTHER ==
[2021-08-09] MEDS ORDERED: Fentanyl 100 MCG/2 ML VIAL ONE (21:53)
[2021-08-09 22:10] LABS: Hemoglobin 14.2 g/dL (14.0-18.0); Mean Corpuscular HGB CONC 35.2 g/dL (32.0-36.0); Mean Corpuscular Hemoglobin 30.8 pg (27.0-31.0); Mean Corpuscular Volume 87.3 fL (78.0-98.0); Mean Platelet Volume 7.9 fL (7.4-10.4); Platelet Count 254 thou/uL (130-400); RBC Distribution Width 11.4 % (11.5-14.5); Red Blood Cell (RBC) Count 4.62 mill/uL (4.70-6.10)
[2021-08-09 22:23] LABS: INR-International Normal Ratio 1.1; PTT 27.9 sec (22.9-36.1); Prothrombin Time 13.8 sec (12.0-14.7)
[2021-08-09 22:27] LABS: Band 6 % (5-11); Lymphocytes 16 % (21-51); MDiff Complete? YES; Monocytes 10 % (0-10); Neutrophil 67 % (42-75); Platelet Morphology Comment Appears Adequate; RBC Morphology Normal; Reactive Lymphocytes 1 % (0-10)
[2021-08-09 22:42] LABS: ALT (SGPT) 805 U/L (8-55); AST (SGOT) 704 U/L (5-34); Alkaline Phosphatase 69 U/L (40-110); Anion Gap 14 mmol/L (10-20); BUN (Urea Nitrogen) 21 mg/dL (8.9-20.6); Bilirubin, Total 0.8 mg/dL (0.2-1.2); Calc. Creatinine Clearance 0 mL/min (70-130); Calcium 8.7 mg/dL (7.8-10.44); Carbon Dioxide 24 mmol/L (22-29); Chloride 106 mmol/L (98-107); Globulin 2.3 g/dL (2.4-3.5); Glucose 145 mg/dL (70-105); Potassium 3.8 mmol/L (3.5-5.1); Protein, Total 6.3 g/dL (6.0-8.3); Sodium 140 mmol/L (136-145)
[2021-08-09] MEDS ORDERED: traMADol HCl 50 MG TAB ONE (23:02)
[2021-08-10] MEDS ORDERED: Ondansetron ODT 4 MG TAB PO PRN (00:34)
[2021-08-10] MEDS ORDERED: Dextrose 5% in Water 1,000 ML IV PRN (00:34)
[2021-08-10] MEDS ORDERED: hydrALAZINE 20 MG/ML VIAL SLOW IVP PRN (00:34)
[2021-08-10] MEDS ORDERED: Dextrose 50% Abboject 50 ML SYRINGE SLOW IVP PRN (00:34)
[2021-08-10] MEDS ORDERED: Promethazine HCl 25 MG/ML VIAL IM PRN ×2 (00:34)
[2021-08-10] MEDS ORDERED: Fentanyl 100 MCG/2 ML VIAL SLOW IVP PRN (00:34)
[2021-08-10] MEDS ORDERED: traMADol HCl 50 MG TAB PO SCH (01:00)
[2021-08-10 01:01] LABS: Hemoglobin 13.5 g/dL (14.0-18.0)
[2021-08-10] MEDS: Acetaminophen 325 MG TAB PO SCH ×4 (01:06→18:12)
[2021-08-10] MEDS: Sodium Chloride 0.9% 1,000 ML IV SCH ×4 (01:06→17:34)
[2021-08-10] MEDS: Cyclobenzaprine 10 MG TAB PO PRN ×3 (01:07→17:08)
[2021-08-10 01:27] VITALS: BMI 23.7
[2021-08-10 02:51] LABS: SARS-CoV-2 NAA Rapid Test Not Detected (NotDetected)
[2021-08-10] MEDS: traMADol HCl 50 MG TAB PO SCH ×3 (05:39→18:11)
[2021-08-10 06:05] LABS: #Lymphocytes 0.7 thou/uL (1.20-3.40); #Neutrophils 9.9 thou/uL (1.40-6.50); %Basophils 0.1 % (0.0-1.0); %Eosinophils 0.2 % (0.0-10.0); %Lymphocytes 5.8 % (21.0-51.0); %Monocytes 8.7 % (0.0-10.0); %Neutrophils 85.3 % (42.0-75.0); Hemoglobin 12.7 g/dL (14.0-18.0); Mean Corpuscular HGB CONC 34.4 g/dL (32.0-36.0); Mean Corpuscular Hemoglobin 30.2 pg (27.0-31.0); Mean Corpuscular Volume 87.9 fL (78.0-98.0); Mean Platelet Volume 7.9 fL (7.4-10.4); Platelet Count 189 thou/uL (130-400); RBC Distribution Width 11.4 % (11.5-14.5); White Blood Cell (WBC) Count 11.7 thou/uL (4.8-10.8)
[2021-08-10 06:16] LABS: Anion Gap 13 mmol/L (10-20); BUN (Urea Nitrogen) 19 mg/dL (8.9-20.6); Calc. Creatinine Clearance 129 mL/min (70-130); Calcium 8.5 mg/dL (7.8-10.44); Carbon Dioxide 25 mmol/L (22-29); Chloride 106 mmol/L (98-107); Glucose 131 mg/dL (70-105); Potassium 4.1 mmol/L (3.5-5.1); Sodium 140 mmol/L (136-145)
[2021-08-10 06:59] LABS: Hemoglobin 12.7 g/dL (14.0-18.0)
[2021-08-10] MEDS: Famotidine 20 MG TAB PO SCH ×2 (08:54→20:18)
[2021-08-10 10:00] LABS: Hemoglobin 11.9 g/dL (14.0-18.0)
[2021-08-10 11:37] LABS: Hemoglobin 12.8 g/dL (14.0-18.0)
[2021-08-10] MEDS: Ondansetron PF 4 MG/2 ML Vial IVP PRN (12:25)
[2021-08-10] MEDS: Morphine 4 MG/ML VIAL SLOW IVP PRN ×4 (12:44→22:21)
[2021-08-11] MEDS: Acetaminophen 325 MG TAB PO SCH ×2 (00:21→06:43)
[2021-08-11] MEDS: traMADol HCl 50 MG TAB PO SCH ×4 (00:22→18:21)
[2021-08-11] MEDS: Ondansetron PF 4 MG/2 ML Vial IVP PRN (02:27)
[2021-08-11] MEDS: Morphine 4 MG/ML VIAL SLOW IVP PRN ×3 (02:27→11:38)
[2021-08-11] MEDS: Sodium Chloride 0.9% 1,000 ML IV SCH (05:46)
[2021-08-11 06:05] LABS: #Lymphocytes 1.1 thou/uL (1.20-3.40); #Monocytes 1.2 thou/uL (0.11-0.59); #Neutrophils 10.2 thou/uL (1.40-6.50); %Basophils 0.2 % (0.0-1.0); %Eosinophils 0.1 % (0.0-10.0); %Lymphocytes 8.6 % (21.0-51.0); %Monocytes 9.8 % (0.0-10.0); %Neutrophils 81.3 % (42.0-75.0); Mean Corpuscular HGB CONC 34.8 g/dL (32.0-36.0); Mean Corpuscular Volume 89.2 fL (78.0-98.0); Mean Platelet Volume 7.6 fL (7.4-10.4); Platelet Count 144 thou/uL (130-400); RBC Distribution Width 11.3 % (11.5-14.5); Red Blood Cell (RBC) Count 3.87 mill/uL (4.70-6.10); White Blood Cell (WBC) Count 12.5 thou/uL (4.8-10.8)
[2021-08-11 06:25] LABS: Phosphorus 2.8 mg/dL (2.3-4.7)
[2021-08-11 06:26] LABS: ALT (SGPT) 1037 U/L (8-55); AST (SGOT) 633 U/L (5-34); Albumin 3.5 g/dL (3.5-5.0); Alkaline Phosphatase 65 U/L (40-110); Bilirubin, Direct 0.4 mg/dL (0.1-0.3); Bilirubin, Total 2.8 mg/dL (0.2-1.2); Magnesium 1.7 mg/dL (1.6-2.6); Protein, Total 5.6 g/dL (6.0-8.3)
[2021-08-11 06:28] LABS: Anion Gap 13 mmol/L (10-20); BUN (Urea Nitrogen) 11 mg/dL (8.9-20.6); Calc. Creatinine Clearance 129 mL/min (70-130); Calcium 8.3 mg/dL (7.8-10.44); Carbon Dioxide 28 mmol/L (22-29); Chloride 98 mmol/L (98-107); Glucose 88 mg/dL (70-105); Potassium 3.9 mmol/L (3.5-5.1); Sodium 135 mmol/L (136-145)
[2021-08-11] MEDS ORDERED: Magnesium 2 GM/50 ML 2 GM in Premix Bag 1 BAG IVPB SCH (08:00)
[2021-08-11] MEDS ORDERED: Lidocaine 1% w/Epinephrine 1:100K 20 ML VIAL FS SCH (08:45)
[2021-08-11] MEDS: Famotidine 20 MG TAB PO SCH ×2 (09:04→20:48)
[2021-08-11] MEDS: Citalopram 20 MG TAB PO SCH (09:04)
[2021-08-11] MEDS ORDERED: Lidocaine 1% (PF) 30 ML VIAL ONE (11:05)
[2021-08-11] MEDS: Cyclobenzaprine 10 MG TAB PO PRN (15:16)
[2021-08-11] MEDS: Gabapentin 300 MG CAP PO SCH ×2 (20:48→20:58)
[2021-08-11] MEDS: Senokot S 8.6-50 MG TAB PO SCH (20:48)
[2021-08-12] MEDS: traMADol HCl 50 MG TAB PO SCH ×4 (00:02→18:41)
[2021-08-12] MEDS: Ondansetron PF 4 MG/2 ML Vial IVP PRN (06:20)
[2021-08-12 06:47] LABS: #Lymphocytes 0.8 thou/uL (1.20-3.40); #Monocytes 1.2 thou/uL (0.11-0.59); #Neutrophils 11.6 thou/uL (1.40-6.50); %Basophils 0.1 % (0.0-1.0); %Eosinophils 0.1 % (0.0-10.0); %Lymphocytes 5.6 % (21.0-51.0); %Monocytes 8.9 % (0.0-10.0); %Neutrophils 85.3 % (42.0-75.0); Mean Corpuscular HGB CONC 35.2 g/dL (32.0-36.0); Mean Corpuscular Hemoglobin 30.9 pg (27.0-31.0); Mean Corpuscular Volume 87.9 fL (78.0-98.0); Mean Platelet Volume 7.4 fL (7.4-10.4); Platelet Count 143 thou/uL (130-400); Red Blood Cell (RBC) Count 3.87 mill/uL (4.70-6.10); White Blood Cell (WBC) Count 13.6 thou/uL (4.8-10.8)
[2021-08-12 07:08] LABS: Anion Gap 12 mmol/L (10-20); BUN (Urea Nitrogen) 10 mg/dL (8.9-20.6); Calc. Creatinine Clearance 126 mL/min (70-130); Calcium 7.9 mg/dL (7.8-10.44); Carbon Dioxide 29 mmol/L (22-29); Chloride 94 mmol/L (98-107); Glucose 137 mg/dL (70-105); Magnesium 2.1 mg/dL (1.6-2.6); Phosphorus 1.8 mg/dL (2.3-4.7); Potassium 3.5 mmol/L (3.5-5.1); Sodium 131 mmol/L (136-145)
[2021-08-12] MEDS ORDERED: Potassium Phosphate 30 MMOL in Sodium Chloride 0.9% 250 ML 250 ML IVPB SCH (08:15)
[2021-08-12] MEDS: Senokot S 8.6-50 MG TAB PO SCH ×2 (08:30→20:57)
[2021-08-12] MEDS: Famotidine 20 MG TAB PO SCH ×2 (08:31→20:57)
[2021-08-12] MEDS: Gabapentin 300 MG CAP PO SCH ×2 (08:31→20:57)
[2021-08-12] MEDS: Citalopram 20 MG TAB PO SCH (08:31)
[2021-08-12] MEDS: Polyethylene Glycol 3350 17 GM Packet PO SCH (08:32)
[2021-08-12] MEDS: Enoxaparin Sodium 40 MG/0.4 ML SYRINGE SC SCH (11:38)
[2021-08-12] MEDS: Cyclobenzaprine 10 MG TAB PO PRN (16:42)
[2021-08-13] MEDS: traMADol HCl 50 MG TAB PO SCH ×4 (00:33→18:10)
[2021-08-13] MEDS: Cyclobenzaprine 10 MG TAB PO PRN ×2 (02:46→15:39)
[2021-08-13 07:18] LABS: #Eosinphils 0.1 thou/uL (0.0-0.7); #Lymphocytes 1.4 thou/uL (1.20-3.40); #Monocytes 1.5 thou/uL (0.11-0.59); %Basophils 0.1 % (0.0-1.0); %Eosinophils 0.5 % (0.0-10.0); %Lymphocytes 10.6 % (21.0-51.0); %Monocytes 11.5 % (0.0-10.0); %Neutrophils 77.1 % (42.0-75.0); Hemoglobin 11.1 g/dL (14.0-18.0); Mean Corpuscular HGB CONC 33.7 g/dL (32.0-36.0); Mean Corpuscular Hemoglobin 29.8 pg (27.0-31.0); Mean Corpuscular Volume 88.4 fL (78.0-98.0); Mean Platelet Volume 7.6 fL (7.4-10.4); Platelet Count 154 thou/uL (130-400); Red Blood Cell (RBC) Count 3.72 mill/uL (4.70-6.10); White Blood Cell (WBC) Count 12.9 thou/uL (4.8-10.8)
[2021-08-13 07:27] LABS: Anion Gap 12 mmol/L (10-20); BUN (Urea Nitrogen) 9 mg/dL (8.9-20.6); Calc. Creatinine Clearance 146 mL/min (70-130); Calcium 8.2 mg/dL (7.8-10.44); Carbon Dioxide 31 mmol/L (22-29); Chloride 94 mmol/L (98-107); Glucose 99 mg/dL (70-105); Magnesium 2.1 mg/dL (1.6-2.6); Phosphorus 2.2 mg/dL (2.3-4.7); Potassium 3.8 mmol/L (3.5-5.1); Sodium 133 mmol/L (136-145)
[2021-08-13] MEDS: Citalopram 20 MG TAB PO SCH (08:29)
[2021-08-13] MEDS: Famotidine 20 MG TAB PO SCH ×2 (08:29→21:56)
[2021-08-13] MEDS: Polyethylene Glycol 3350 17 GM Packet PO SCH (08:30)
[2021-08-13] MEDS: Senokot S 8.6-50 MG TAB PO SCH ×2 (08:30→21:56)
[2021-08-13] MEDS: Enoxaparin Sodium 40 MG/0.4 ML SYRINGE SC SCH (08:30)
[2021-08-13] MEDS: Gabapentin 300 MG CAP PO SCH ×2 (08:30→21:56)
[2021-08-13] MEDS ORDERED: Potassium Phosphate 30 MMOL in Sodium Chloride 0.9% 250 ML 250 ML IVPB SCH (09:00)
[2021-08-13] MEDS ORDERED: Iopamidol-370 76% 500 ML 1 ML ONE (10:17)
[2021-08-14] MEDS: traMADol HCl 50 MG TAB PO SCH ×5 (01:08→19:00)
[2021-08-14] MEDS: Cyclobenzaprine 10 MG TAB PO PRN ×2 (04:43→17:38)
[2021-08-14 04:49] LABS: ALT (SGPT) 362 U/L (8-55); AST (SGOT) 90 U/L (5-34); Albumin 3.3 g/dL (3.5-5.0); Alkaline Phosphatase 96 U/L (40-110); Anion Gap 13 mmol/L (10-20); BUN (Urea Nitrogen) 9 mg/dL (8.9-20.6); Bilirubin, Total 2.3 mg/dL (0.2-1.2); Calc. Creatinine Clearance 151 mL/min (70-130); Calcium 8.4 mg/dL (7.8-10.44); Carbon Dioxide 31 mmol/L (22-29); Chloride 95 mmol/L (98-107); Globulin 2.5 g/dL (2.4-3.5); Glucose 114 mg/dL (70-105); Phosphorus 2.5 mg/dL (2.3-4.7); Potassium 3.8 mmol/L (3.5-5.1); Protein, Total 5.8 g/dL (6.0-8.3); Sodium 135 mmol/L (136-145)
[2021-08-14 06:39] LABS: Hemoglobin 10.4 g/dL (14.0-18.0); Mean Corpuscular Hemoglobin 31.2 pg (27.0-31.0); Mean Corpuscular Volume 89.1 fL (78.0-98.0); Platelet Count 166 thou/uL (130-400); Red Blood Cell (RBC) Count 3.33 mill/uL (4.70-6.10); White Blood Cell (WBC) Count 9.4 thou/uL (4.8-10.8)
[2021-08-14 06:40] LABS: Band 10 % (5-11); Eosinophils 2 % (0-10); Lymphocytes 12 % (21-51); MDiff Complete? YES; Monocytes 11 % (0-10); Neutrophil 65 % (42-75)
[2021-08-14] MEDS ORDERED: Potassium Phosphate 30 MMOL in Sodium Chloride 0.9% 250 ML 250 ML IVPB SCH (08:00)
[2021-08-14] MEDS: Senokot S 8.6-50 MG TAB PO SCH ×2 (08:45→21:33)
[2021-08-14] MEDS: Famotidine 20 MG TAB PO SCH ×2 (08:47→21:32)
[2021-08-14] MEDS: Polyethylene Glycol 3350 17 GM Packet PO SCH (08:47)
[2021-08-14] MEDS: Gabapentin 300 MG CAP PO SCH ×2 (08:48→21:32)
[2021-08-14] MEDS: Saccharomyces boulardii 250 MG CAP PO SCH (08:48)
[2021-08-14] MEDS: Citalopram 20 MG TAB PO SCH (08:48)
[2021-08-14] MEDS: Enoxaparin Sodium 40 MG/0.4 ML SYRINGE SC SCH (08:51)
[2021-08-14] MEDS: Ondansetron PF 4 MG/2 ML Vial IVP PRN (22:34)
[2021-08-15] MEDS: traMADol HCl 50 MG TAB PO SCH ×3 (01:23→12:28)
[2021-08-15 05:16] LABS: Hemoglobin 10.1 g/dL (14.0-18.0); Mean Corpuscular Hemoglobin 30.9 pg (27.0-31.0); Mean Corpuscular Volume 88.2 fL (78.0-98.0); Mean Platelet Volume 7.1 fL (7.4-10.4); Platelet Count 204 thou/uL (130-400); Red Blood Cell (RBC) Count 3.26 mill/uL (4.70-6.10); White Blood Cell (WBC) Count 9.3 thou/uL (4.8-10.8)
[2021-08-15 05:46] LABS: Band 11 % (5-11); Eosinophils 1 % (0-10); Lymphocytes 10 % (21-51); MDiff Complete? YES; Monocytes 11 % (0-10); Myelocyte 1 % (0-0); Neutrophil 66 % (42-75)
[2021-08-15 05:58] LABS: Anion Gap 14 mmol/L (10-20); BUN (Urea Nitrogen) 9 mg/dL (8.9-20.6); Calc. Creatinine Clearance 153 mL/min (70-130); Calcium 8.5 mg/dL (7.8-10.44); Carbon Dioxide 27 mmol/L (22-29); Chloride 98 mmol/L (98-107); Glucose 99 mg/dL (70-105); Phosphorus 3.3 mg/dL (2.3-4.7); Potassium 3.6 mmol/L (3.5-5.1); Sodium 135 mmol/L (136-145)
[2021-08-15] MEDS ORDERED: Potassium Chloride 20 MEQ TAB PO SCH (08:00)
[2021-08-15] MEDS ORDERED: PHOS-NAK 1 PKT PACK PO SCH (08:00)
[2021-08-15] MEDS ORDERED: Potassium Chloride 40 MEQ in Premix Bag 1 BAG IVPB SCH (09:15)
[2021-08-15] MEDS ORDERED: Potassium Chloride 40 MEQ in Sodium Chloride 0.9% 250 ML 250 ML IVPB SCH (10:15)
[2021-08-15] MEDS: Enoxaparin Sodium 40 MG/0.4 ML SYRINGE SC SCH (10:27)
[2021-08-15] MEDS: Citalopram 20 MG TAB PO SCH (10:27)
[2021-08-15] MEDS: Famotidine 20 MG TAB PO SCH (10:28)
[2021-08-15] MEDS: Saccharomyces boulardii 250 MG CAP PO SCH (10:29)
[2021-08-15] MEDS: Gabapentin 300 MG CAP PO SCH (10:29)
[2021-08-15] MEDS: Polyethylene Glycol 3350 17 GM Packet PO SCH (10:30)
[2021-08-15] MEDS: Senokot S 8.6-50 MG TAB PO SCH (10:30)
[2021-08-15 12:28] VITALS: BP 125/79; TEMP 98.5
== END 2021-08-15 18:00 | disposition home or self-care (01) | DRG 963 ==
LOC: ERS 21:15 → UNDOADMIN 21:50 → SURG A 21:50
PROVIDERS: ADMIT Surgery; ATTEND Surgery
PROC: 0W9900Z Drainage of Right Pleural Cavity with Drainage Device, Open Approach (ICD-10-PCS; 2021-08-11)
PROC: 3E0G76Z Introduction of Nutritional Substance into Upper GI, Via Natural or Artificial Opening (ICD-10-PCS; 2021-08-14)
PROC: 5A09357 Assistance with Respiratory Ventilation, Less than 24 Consecutive Hours, Continuous Positive Airway Pressure (ICD-10-PCS; principal; 2021-08-15)
DX: S27.2XXA Traumatic hemopneumothorax, initial encounter (principal); S37.061A Major laceration of right kidney, initial encounter; J15.9 Unspecified bacterial pneumonia; S36.116A Major laceration of liver, initial encounter; J98.11 Atelectasis; E87.1 Hypo-osmolality and hyponatremia; Z20.822 Contact with and (suspected) exposure to COVID-19; R74.01 Elevation of levels of liver transaminase levels; G47.33 Obstructive sleep apnea (adult) (pediatric); E83.39 Other disorders of phosphorus metabolism; W55.12XA Struck by horse, initial encounter; Z90.49 Acquired absence of other specified parts of digestive tract; Z87.820 Personal history of traumatic brain injury; Z88.5 Allergy status to narcotic agent; Z88.0 Allergy status to penicillin
CPT/HCPCS: 36415; 71045; 71260; 74177; 80048; 80053; 80076; 82140; 83735; 84100; 84145; 85007; 85014; 85018; 85025; 85027; 86850; 86900; 86901; 87040; 87086; 94660; 96374; G0390; J1650; J1956; J2270; J2405; J3010; J3475; J3480; J7050; Q9967; U0002

== ENCOUNTER 2021-08-20 11:47 | Outpatient (CLI) | payer OTHER | END 2021-08-20 11:48 | disposition home or self-care (01) | LOC: BICRAD 11:47 | PROVIDERS: ATTEND Surgery | DX: J94.2 Hemothorax (principal); J90 Pleural effusion, not elsewhere classified | CPT/HCPCS: 71046 ==